=== PATIENT | female | born 2000 | race Caucasian/White ===

== ENCOUNTER 2019-03-07 16:14 | Emergency (ER) | payer OTHER, SELFPAY ==
--- NOTE | 2019-03-07 16:17 | ED.GENADULT ---
HPI - General Adult General Chief complaint: Upper Respiratory Infection Stated complaint: congestion/CAMILO Time Seen by Provider: 03/07/19 16:34 Source: patient Mode of arrival: ambulatory Limitations: no limitations History of Present Illness HPI narrative: 19-year-old female patient presents to the [facility] with complaints of cold symptoms for the past 3 days. Patient states her main symptoms today are facial pain and pressure, nasal congestion drainage and some pressure to bilateral ears. Patient states she is also had a slight headache denies any fevers. Denies any sore throat cough, chest pain, shortness of breath, abdominal pain, nausea, vomiting or diarrhea. Patient denies getting a flu shot this year. Related Data Home Medications Medication Instructions Recorded Confirmed drospirenone-ethinyl estradiol 1 tablet PO DAILY 03/07/19 03/07/19 [CONG (28)] escitalopram oxalate [Lexapro] 10 mg PO DAILY 03/07/19 03/07/19 propranolol 5 mg PO TID 03/07/19 03/07/19 Allergies Allergy/AdvReac Type Severity Reaction Status Date / Time No Known Allergies Allergy Verified 03/07/19 16:34 Review of Systems Review of Systems: Narrative: CONSTITUTIONAL: Denies fever, chills, or sweats. EYES: Denies visual changes, redness, or discharge. ENT: Positive rhinorrhea, congestion, denies sore throat, positive bilateral otalgia. CARDIOVASCULAR: Denies chest pain, palpitations, or edema. RESPIRATORY: Denies cough or dyspnea. GASTROINTESTINAL: Denies abdominal pain, nausea, vomiting, or diarrhea. GENITOURINARY: Denies dysuria or hematuria. SKIN: Denies rash or itching. MUSCULOSKELETAL: Denies back pain, joint pain, or myalgia. NEUROLOGIC: Positive headache, denies numbness, or weakness. PSYCHIATRIC: Denies anxiety or depression. 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 There is no relevant family history pertinent to the presenting complaint. Exam Narrative: Exam Narrative: GENERAL: Well-appearing, well-nourished, and in no acute distress. HEAD: Normocephalic, atraumatic. Slight tenderness noted to maxillary and frontal sinuses on palpation EYES: PERRLA and EOMI. ENT: Nares with erythema and edema noted bilaterally, no rhinorrhea or epistaxis. Mucous membranes moist. Posterior pharynx with no erythema, tonsillectomy, exudates or lesions present. Bilateral TMs are clear no erythema or foreign bodies in the canal. NECK: Supple. No lymphadenopathy CHEST: Clear to auscultation. No respiratory distress. HEART: Regular rate and rhythm. No murmur heard. Normal peripheral pulses. ABDOMEN: Soft, nontender, nondistended, normal active bowel sounds. EXTREMITIES: Normal range of motion. No edema. SKIN: Warm, dry, no rash. NEURO: No focal deficits. Alert and oriented x3. Course Vital Signs Vital signs: Vital Signs Temperature 36.9 C 03/07/19 16:33 Pulse Rate 105 H 03/07/19 16:33 Respiratory Rate 18 03/07/19 16:33 Blood Pressure 115/79 03/07/19 16:33 Pulse Oximetry 100 03/07/19 16:33 Temperature 36.9 C 03/07/19 16:33 Pulse Rate 105 H 03/07/19 16:33 Respiratory Rate 18 03/07/19 16:33 Blood Pressure 115/79 03/07/19 16:33 Pulse Oximetry 100 03/07/19 16:33 Vital signs reviewed. Medical Decision Making Vital Signs Vital Signs: Vital Signs Temperature 36.9 C 03/07/19 16:33 Pulse Rate 105 H 03/07/19 16:33 Respiratory Rate 18 03/07/19 16:33 Blood Pressure 115/79 03/07/19 16:33 Pulse Oximetry 100 03/07/19 16:33 Temperature 36.9 C 03/07/19 16:33 Pulse Rate 105 H 03/07/19 16:33 Respiratory Rate 18 03/07/19 16:33 Blood Pressure 115/79 03/07/19 16:33 Pulse Oximetry 100 03/07/19 16:33 Differential diagnosis: Allergic rhinitis, chronic sinusitis, tonsillitis, acute sinusitis, i
[2019-03-07 16:33] VITALS: BP 115/79; PULSE 105; RESP 18; TEMP 36.9; O2SAT 100
== END 2019-03-07 16:50 | disposition home or self-care (01) ==
PROVIDERS: Emergency Provider Nurse Practitioner Family
DX: J00 Acute nasopharyngitis [common cold] (principal); J01.90 Acute sinusitis, unspecified; J06.9 Acute upper respiratory infection, unspecified; E06.3 Autoimmune thyroiditis; F41.9 Anxiety disorder, unspecified
CPT/HCPCS: 99203; G0463